=== PATIENT | female | born 1975 | race Caucasian/White ===

== ENCOUNTER 2016-10-19 13:31 | Emergency (ER) | payer BC ==
[~2016-10-19] VITALS: Ht 160 cm; Wt 115.0 kg
[~2016-10-19 13:31] MED LIST: ALEVE220 MG PO; AMOXICILLIN500 MG OR; AMOXICILLIN875 MG OR; ATIVAN0.5 MG OR; ATUSS DS OR; BACTRIM DS1 TAB PO; BEYAZ PO; CARAFATE PO; CIPRO500 MG OR; CIPROFLOXACN500 MG PO; DARVOCET-N100 MG OR; FLAGYL500 MG OR; METROGEL VAG0.75 % VA; NO MEDS; OMEPRAZOLE20 MG PO; PERCOCET 5/325M1 TAB OR; PRILOSEC20 MG PO; REGLAN10 MG OR; YAZ1 TAB OR; YAZ1 TAB PO; ZOFRAN ODT4 MG OR; ZOFRAN4 MG/TAB PO
[2016-10-19 16:25] VITALS: BP 123/66
[2016-10-19] MEDS ORDERED: AMOXICILLIN500 MG PO (16:31)
[2016-10-19] MEDS ORDERED: LORAZEPAM0.5 MG PO (16:32)
== END 2016-10-19 16:30 | disposition home or self-care (01) | DRG 605 ==
LOC: ED 13:31
PROC: 2W3TX1Z Immobilization of Left Foot using Splint (ICD-10-PCS; principal; 2016-10-19)
DX: S00.93XA Contusion of unspecified part of head, initial encounter (principal); S92.425A Nondisplaced fracture of distal phalanx of left great toe, initial encounter for closed fracture; W01.190A Fall on same level from slipping, tripping and stumbling with subsequent striking against furniture, initial encounter; Y92.008 Other place in unspecified non-institutional (private) residence as the place of occurrence of the external cause

== ENCOUNTER 2017-03-08 03:46 | Emergency (ER) | payer BC ==
[~2017-03-08] VITALS: Ht 160 cm; Wt 102.0 kg
[~2017-03-08 03:46] MED LIST changes: +AMOXICILLIN500 MG PO; +LORAZEPAM0.5 MG PO
[2017-03-08 04:10] LABS: HEMATOCRIT 42.7 % (37.0-47.0); HEMOGLOBIN 14.2 g/dl (12.0-16.0); IMMATURE GRANULOCYTES 0.2 % (0.0-1.0); MEAN CELL VOLUME 88.6 fL CALC (80.0-100.0); MEAN CORPUSCULAR HGB 29.5 pG CALC (26.0-32.0); MEAN CORPUSCULAR HGB CONC 33.3 g/L CALC (32.0-36.0); NEUT# 4.55 thou/uL (2.00-7.15); RED BLOOD COUNT 4.82 mill/uL (4.20-5.60)
[2017-03-08 04:27] LABS: ALBUMIN 3.9 g/dL (3.2-5.0); ALKALINE PHOSPHATASE 95 u/l (38-126); AMYLASE 57 u/l (30-110); ANION GAP 14 (6-22 (CALC)); BILIRUBIN, TOTAL 0.5 mg/dL (0.0-1.4); BUN 17 mg/dL (7-17); BUN/CREATININE RATIO 24 (12-20 (CALC)); CALCIUM 8.8 mg/dL (8.4-10.2); CARBON DIOXIDE 25 mmol/l (22-30); CHLORIDE 108 mmol/l (95-108); CREATININE 0.7 mg/dL (0.5-1.0); GFR > 60 ML/MIN (>=60 (CALC)); GFR FOR AFR.AMER. > 60 ML/MIN (>=60 (CALC)); GLUCOSE 97 mg/dL (65-105); LIPASE 89 u/l (23-300); SGOT/AST 29 u/l (14-36); SGPT/ALT 31 u/l (9-52); SODIUM 143 mmol/l (137-146); TOTAL PROTEIN 6.7 g/dL (6.3-8.2)
[2017-03-08 04:39] LABS: MYOGLOBIN 24 ng/mL (0 - 62)
[2017-03-08 04:51] LABS: URINE BILIRUBIN - DIPSTICK NEGATIVE (NEGATIVE); URINE BLOOD DIPSTICK NEGATIVE (NEGATIVE); URINE CLARITY CLEAR; URINE COLOR YELLOW; URINE GLUCOSE - DIPSTICK NEGATIVE (NEGATIVE); URINE KETONE NEGATIVE (NEGATIVE); URINE LEUK ESTERASE NEGATIVE (NEGATIVE); URINE NITRITE - DIPSTICK NEGATIVE (Negative); URINE PH 5.5 (4.5-8.0); URINE PROTEIN - DIPSTICK NEGATIVE (NEG-TRACE); URINE SPECIFIC GRAVITY >=1.030; URINE UROBILINOGEN - DIPSTICK 0.2 E.U./dL (0.2)
[2017-03-08 04:54] LABS: COCAINE NEGATIVE (NEGATIVE); METHADONE NEGATIVE (NEGATIVE); TETRAHYDROCANNABIONOL NEGATIVE (NEGATIVE)
[2017-03-08 04:55] LABS: BARBITURATES NEGATIVE (NEGATIVE); OXCYCODONE NEGATIVE (NEGATIVE); TRICYLIC ANTIDEPRESSANTS NEGATIVE (NEGATIVE)
[2017-03-08 10:06] VITALS: BP 100/61
== END 2017-03-08 10:15 | disposition home or self-care (01) | DRG 313 ==
LOC: ED 03:46
PROVIDERS: Emergency Medicine
DX: R07.89 Other chest pain (principal); K44.9 Diaphragmatic hernia without obstruction or gangrene; R00.0 Tachycardia, unspecified; R11.2 Nausea with vomiting, unspecified
CPT/HCPCS: Q9967; S0164